=== PATIENT | male | born 1980 | race Two or more races ===

== ENCOUNTER 2020-11-01 11:25 | Inpatient (IN) | payer OTHER ==
[~2020-11-01] VITALS: Ht 172.7 cm; Wt 79.0 kg
[2020-11-01] MEDS ORDERED: SODIUM CHLORIDE 0.9% 1,000 ML IV ONE ×2 (11:45→18:30)
[2020-11-01 12:11] LABS: Basophils # (auto) 0 10 ^3/uL (0-0.2); Basophils % (auto) 0.1 % (0.0-2.0); Eosinophils # (auto) 0 10 ^3/uL (0-0.8); Eosinophils % (auto) 0.1 % (0.0-7.0); Hemoglobin 11.6 g/dL (13.5-17.5); Nucleated Red Blood Cells % 0.1 %; White Blood Cell 24.9 10^3/uL (4.4-10.8)
[2020-11-01 12:13] LABS: Lymphocytes # (auto) 1.5 10 ^3/uL (0.4-5.4); Lymphocytes % (auto) 6.1 % (10.0-50.0); Mean Corpuscular Hemoglobin 27.8 pg (28.0-32.0); Mean Corpuscular Hgb Conc. 35.3 g/dL (32.0-36.0); Mean Corpuscular Volume 78.9 fL (80.0-100.0); Monocytes # (auto) 1.4 10 ^3/uL (0-1.3); Monocytes % (auto) 5.5 % (0.0-12.0); Neutrophils % (auto) 88.2 % (37.0-80.0); Red Blood Cells 4.19 10^6/uL (4.5-5.90)
[2020-11-01 12:19] LABS: Albumin 1.8 g/dL (3.4-5.0); Anion Gap 16 (5-15); Blood Urea Nitrogen 17 mg/dL (7-18); Calcium 7.8 mg/dL (8.5-10.1); Carbon Dioxide 22 mmol/L (21-32); Chloride 76 mmol/L (98-107); Glucose 101 mg/dL (74-106); Potassium 3.1 mmol/L (3.5-5.1)
[2020-11-01 12:25] LABS: Alanine Aminotransferase 20 U/L (16-61); Alkaline Phosphatase 200 U/L (45-117); Aspartate Aminotransferase 88 U/L (15-37); Bilirubin, Total 3.1 mg/dL (0.2-1.0); GFR African American 64 mL/min; GFR Non-African American 53 mL/min; INR 1.34 (0.9-1.15); Partial Thromboplastin Time 35.1 sec (23.0-31.2); Total Protein 7.6 g/dL (6.4-8.2)
[2020-11-01 12:27] LABS: Platelet Count (auto) 543 10^3/uL (140-450)
[2020-11-01 12:31] LABS: Sodium 114 mmol/L (136-145)
[2020-11-01 12:43] LABS: Lactic Acid w/Reflex 3.9 mmol/L (0.4-2.0)
[2020-11-01] MEDS ORDERED: VANCOMYCIN 1GM/250ML 250 ML IV ONE (17:15)
[2020-11-01] MEDS ORDERED: POTASSIUM CHL 20MEQ/100ML 100 ML IV ONE (17:15)
[2020-11-01] MEDS ORDERED: SODIUM CHL 3% 500 ML IV ONE (17:45)
[2020-11-01] MEDS ORDERED: PROMETHAZINE HCL 25 MG/ML 1ML IV ONE (17:45)
[2020-11-01] MEDS ORDERED: LACTULOSE 10g/15ml SOLN PR ONE (17:45)
[2020-11-01] MEDS ORDERED: LIDOCAINE 2% IV ONE (18:00)
[2020-11-01] MEDS ORDERED: POTASSIUM CHL IV ONE (18:00)
[2020-11-01] MEDS ORDERED: POTASSIUM CHLORIDE 20 MEQ, LIDOCAINE 1% (LOCAL ANESTH.) 2 ML in SODIUM CHL 0.9% 100 ML IV ONE (18:15)
[2020-11-01] MEDS ORDERED: VANCOMYCIN PER PHARMACY 0 MG IV SCH (18:30)
[2020-11-01] MEDS ORDERED: ALBUTEROL SULF HFA 90MCG INH 200DOSE IN PRN (18:30)
[2020-11-01] MEDS ORDERED: MORPHINE SULF INJ 2 MG/ML SYRINGE 1ML IV PRN (18:30)
[2020-11-01] MEDS ORDERED: NITROGLYCERIN 0.4 MG SL TAB SL PRN (18:30)
[2020-11-01] MEDS: cefTRIAXone 1GM/50ML D5W 50 ML IV SCH (18:57)
[2020-11-01] MEDS: DexAMETHasone SOD PHOS 10MG/1ML VIAL INJ IV SCH (18:58)
[2020-11-01] MEDS: CHOLECALCIFEROL (VITD3) 2,000 UNIT CAP PO SCH (18:58)
[2020-11-01 19:18] LABS: Lactate Dehydrogenase 307 U/L (87-241)
[2020-11-01 19:51] LABS: CRP High Sensitivity > 19.0 mg/dL (< 0.3)
[2020-11-01] MEDS: ASCORBIC ACID 1,000 MG TAB PO SCH (21:14)
[2020-11-01] MEDS: ENOXAPARIN SOD 40 MG/0.4 ML SYRINGE SC SCH (22:00)
[2020-11-01] MEDS: BUDESONIDE (INHALATION) 180 MCG IH IN SCH (23:23)
[2020-11-02] MEDS ORDERED: POTASSIUM CHL 20MEQ/100ML 100 ML IV ONE (02:45)
[2020-11-02] MEDS: SOD CHL 0.9%/ KCL 20MEQ 1,000 ML IV SCH (02:45)
[2020-11-02] MEDS: LACTULOSE 20Gm/30ML SOLN PO SCH ×4 (06:06→18:32)
[2020-11-02 07:01] LABS: Basophils # (auto) 0 10 ^3/uL (0-0.2); Eosinophils # (auto) 0 10 ^3/uL (0-0.8); Hematocrit 31.7 % (41.0-53.0); Lymphocytes # (auto) 0.3 10 ^3/uL (0.4-5.4); Lymphocytes % (auto) 1.9 % (10.0-50.0); Mean Corpuscular Hemoglobin 27.2 pg (28.0-32.0); Mean Corpuscular Hgb Conc. 34.9 g/dL (32.0-36.0); Mean Corpuscular Volume 77.8 fL (80.0-100.0); Monocytes # (auto) 0.3 10 ^3/uL (0-1.3); Monocytes % (auto) 2.4 % (0.0-12.0); Neutrophils # (auto) 13.1 10 ^3/uL (1.6-8.6); Neutrophils % (auto) 95.7 % (37.0-80.0); Platelet Count (auto) 401 10^3/uL (140-450); Red Blood Cells 4.07 10^6/uL (4.5-5.90); Red Cell Distribution Width 15.1 % (11.8-14.3); White Blood Cell 13.7 10^3/uL (4.4-10.8)
[2020-11-02 07:11] LABS: Potassium 3.5 mmol/L (3.5-5.1)
[2020-11-02 07:19] LABS: Albumin 1.6 g/dL (3.4-5.0); BUN/Creatinine Ratio 25.7; Bilirubin, Total 1.4 mg/dL (0.2-1.0); Total Protein 6.8 g/dL (6.4-8.2)
[2020-11-02] MEDS: ENOXAPARIN SOD 40 MG/0.4 ML SYRINGE SC SCH ×2 (09:20→22:07)
[2020-11-02] MEDS: CHOLECALCIFEROL (VITD3) 2,000 UNIT CAP PO SCH (09:21)
[2020-11-02] MEDS: ASCORBIC ACID 1,000 MG TAB PO SCH (09:22)
[2020-11-02] MEDS: cefTRIAXone 1GM/50ML D5W 50 ML IV SCH (09:43)
[2020-11-02] MEDS: DexAMETHasone SOD PHOS 10MG/1ML VIAL INJ IV SCH (09:43)
[2020-11-02] MEDS: BUDESONIDE (INHALATION) 180 MCG IH IN SCH ×2 (10:05→22:00)
[2020-11-02 10:06] LABS: Amylase 15 U/L (25-115); Lipase 28 U/L (73-393)
[2020-11-02 10:08] LABS: Creatine Kinase IFCC 825 U/L (39-308)
[2020-11-02] MEDS: VANCOMYCIN 1GM/250ML 250 ML IV SCH ×2 (12:40→20:20)
[2020-11-03] MEDS: LACTULOSE 20Gm/30ML SOLN PO SCH ×4 (00:18→18:14)
[2020-11-03] MEDS: SOD CHL 0.9%/ KCL 20MEQ 1,000 ML IV SCH ×2 (03:28→18:56)
[2020-11-03] MEDS: VANCOMYCIN 1GM/250ML 250 ML IV SCH ×3 (04:18→22:11)
[2020-11-03 06:54] LABS: Basophils # (auto) 0 10 ^3/uL (0-0.2); Basophils % (auto) 0.1 % (0.0-2.0); Eosinophils # (auto) 0 10 ^3/uL (0-0.8); Hematocrit 29.2 % (41.0-53.0); Hemoglobin 10.1 g/dL (13.5-17.5); Lymphocytes # (auto) 0.6 10 ^3/uL (0.4-5.4); Lymphocytes % (auto) 4.5 % (10.0-50.0); Mean Corpuscular Hemoglobin 27.4 pg (28.0-32.0); Mean Corpuscular Hgb Conc. 34.6 g/dL (32.0-36.0); Mean Corpuscular Volume 79.3 fL (80.0-100.0); Monocytes # (auto) 1.2 10 ^3/uL (0-1.3); Monocytes % (auto) 8.6 % (0.0-12.0); Neutrophils # (auto) 12.4 10 ^3/uL (1.6-8.6); Neutrophils % (auto) 86.8 % (37.0-80.0); Platelet Count (auto) 405 10^3/uL (140-450); Red Blood Cells 3.69 10^6/uL (4.5-5.90); Red Cell Distribution Width 15.3 % (11.8-14.3); White Blood Cell 14.3 10^3/uL (4.4-10.8)
[2020-11-03 07:11] LABS: Potassium 3.3 mmol/L (3.5-5.1)
[2020-11-03 07:17] LABS: Albumin 1.7 g/dL (3.4-5.0); BUN/Creatinine Ratio 25.4; Bilirubin, Total 0.9 mg/dL (0.2-1.0); Calcium 7.9 mg/dL (8.5-10.1); Total Protein 6.6 g/dL (6.4-8.2)
[2020-11-03] MEDS: cefTRIAXone 1GM/50ML D5W 50 ML IV SCH (09:01)
[2020-11-03] MEDS: ENOXAPARIN SOD 40 MG/0.4 ML SYRINGE SC SCH ×2 (09:01→22:27)
[2020-11-03] MEDS: DexAMETHasone SOD PHOS 10MG/1ML VIAL INJ IV SCH (09:01)
[2020-11-03] MEDS: CHOLECALCIFEROL (VITD3) 2,000 UNIT CAP PO SCH (09:01)
[2020-11-03] MEDS: ASCORBIC ACID 1,000 MG TAB PO SCH (09:01)
[2020-11-03] MEDS: BUDESONIDE (INHALATION) 180 MCG IH IN SCH ×2 (10:00→22:00)
[2020-11-03] MEDS ORDERED: LORazepam 2MG/ML-1ML VIAL IV ONE (22:30)
[2020-11-04 00:39] LABS: Urine Amorphous Crystal MOD /hpf (None Seen); Urine Bacteria MANY /hpf (None Seen); Urine Blood 3+ /uL (Negative); Urine Mucus FEW (None Seen); Urine Specific Gravity 1.027 (1.001-1.035); Urine WBC 2544 /hpf (0 - 3); Urine WBC Clumps PRESENT /hpf (None Seen)
[2020-11-04] MEDS: VANCOMYCIN 1GM/250ML 250 ML IV SCH ×2 (05:52→16:47)
[2020-11-04] MEDS: LACTULOSE 20Gm/30ML SOLN PO SCH ×4 (06:00→17:59)
[2020-11-04] MEDS: ENOXAPARIN SOD 40 MG/0.4 ML SYRINGE SC SCH ×2 (11:17→21:58)
[2020-11-04] MEDS: cefTRIAXone 1GM/50ML D5W 50 ML IV SCH (11:17)
[2020-11-04] MEDS: DexAMETHasone SOD PHOS 10MG/1ML VIAL INJ IV SCH (11:17)
[2020-11-04] MEDS: ASCORBIC ACID 1,000 MG TAB PO SCH (11:17)
[2020-11-04] MEDS: CHOLECALCIFEROL (VITD3) 2,000 UNIT CAP PO SCH (11:17)
[2020-11-04] MEDS: SOD CHL 0.9%/ KCL 20MEQ 1,000 ML IV SCH (11:57)
[2020-11-04 19:10] VITALS: BP 87/53
[2020-11-04 22:30] LABS: Basophils # (auto) 0.2 10 ^3/uL (0-0.2); Basophils % (auto) 2.3 % (0.0-2.0); Eosinophils # (auto) 0 10 ^3/uL (0-0.8); Hematocrit 29.2 % (41.0-53.0); Hemoglobin 10.1 g/dL (13.5-17.5); Lymphocytes # (auto) 0.4 10 ^3/uL (0.4-5.4); Lymphocytes % (auto) 4.9 % (10.0-50.0); Mean Corpuscular Hemoglobin 27.9 pg (28.0-32.0); Mean Corpuscular Hgb Conc. 34.5 g/dL (32.0-36.0); Mean Corpuscular Volume 81.1 fL (80.0-100.0); Monocytes # (auto) 0.5 10 ^3/uL (0-1.3); Monocytes % (auto) 6.2 % (0.0-12.0); Neutrophils # (auto) 7.1 10 ^3/uL (1.6-8.6); Neutrophils % (auto) 86.6 % (37.0-80.0); Platelet Count (auto) 292 10^3/uL (140-450); Red Blood Cells 3.61 10^6/uL (4.5-5.90); Red Cell Distribution Width 15.1 % (11.8-14.3); White Blood Cell 8.2 10^3/uL (4.4-10.8)
[2020-11-04 22:55] LABS: Potassium 3.8 mmol/L (3.5-5.1)
[2020-11-04 23:02] LABS: BUN/Creatinine Ratio 22.7; Bilirubin, Total 0.7 mg/dL (0.2-1.0); Calcium 8.2 mg/dL (8.5-10.1); Total Protein 6.3 g/dL (6.4-8.2)
[2020-11-05 04:30] VITALS: BP 84/49
[2020-11-05] MEDS: VANCOMYCIN 1GM/250ML 250 ML IV SCH (05:03)
[2020-11-05] MEDS: LACTULOSE 20Gm/30ML SOLN PO SCH ×3 (06:30→11:46)
[2020-11-05 08:30] VITALS: BP 92/56
[2020-11-05] MEDS: cefTRIAXone 1GM/50ML D5W 50 ML IV SCH (08:40)
[2020-11-05 09:00] VITALS: BP 92/56
[2020-11-05] MEDS: ENOXAPARIN SOD 40 MG/0.4 ML SYRINGE SC SCH (09:01)
[2020-11-05] MEDS: CHOLECALCIFEROL (VITD3) 2,000 UNIT CAP PO SCH (09:02)
[2020-11-05] MEDS: ASCORBIC ACID 1,000 MG TAB PO SCH (09:02)
[2020-11-05] MEDS: DexAMETHasone SOD PHOS 10MG/1ML VIAL INJ IV SCH (09:03)
[2020-11-05] MEDS: SOD CHL 0.9%/ KCL 20MEQ 1,000 ML IV SCH (10:45)
[2020-11-05 12:35] VITALS: BP 93/57
[2020-11-05 13:07] VITALS: BP 93/57
== END 2020-11-05 16:25 | disposition home or self-care (01) | DRG 871 ==
LOC: ER 11:25 → EDBD 11:25 → TELE 18:34 → TELE-CENTR 11-04 19:10
PROVIDERS: ADMIT Nurse Practitioner Acute Care; ATTEND Family Medicine
DX: A41.9 Sepsis, unspecified organism (principal); E43 Unspecified severe protein-calorie malnutrition; G93.41 Metabolic encephalopathy; J18.9 Pneumonia, unspecified organism; C19 Malignant neoplasm of rectosigmoid junction; D68.59 Other primary thrombophilia; E87.1 Hypo-osmolality and hyponatremia; I31.3 Pericardial effusion (noninflammatory); E11.9 Type 2 diabetes mellitus without complications; E87.6 Hypokalemia; I10 Essential (primary) hypertension; Z20.828 Contact with and (suspected) exposure to other viral communicable diseases; N28.1 Cyst of kidney, acquired; Z88.0 Allergy status to penicillin; Z68.26 Body mass index [BMI] 26.0-26.9, adult
CPT/HCPCS: 36415; 70450; 71045; 74176; 80053; 80202; 80320; 81001; 82140; 82150; 82550; 82728; 82962; 83605; 83615; 83690; 83880; 84484; 85025; 85379; 85610; 85730; 86141; 87040; 87076; 87086; 87426; 93306; 94640; 96374; 96375; 99291; G0378; J0696; J1100; J2001; J3480

== ENCOUNTER 2020-12-12 12:05 | Inpatient (IN) | payer OTHER ==
[~2020-12-12] VITALS: Ht 167.6 cm; Wt 72.6 kg
[2020-12-12] MEDS ORDERED: MORPHINE SULFATE 4 MG/ML SYR/VIAL IV ONE (12:45)
[2020-12-12] MEDS ORDERED: SODIUM CHLORIDE 0.9% 1,000 ML IVB ONE (12:45)
[2020-12-12] MEDS ORDERED: ONDANSETRON HCL 4 MG/2 ML VIAL IV ONE (12:45)
[2020-12-12 13:01] LABS: Basophils # (auto) 0.1 10 ^3/uL (0-0.2); Basophils % (auto) 0.2 % (0.0-2.0); Eosinophils # (auto) 0 10 ^3/uL (0-0.8); Hematocrit 28.8 % (41.0-53.0); Hemoglobin 9.5 g/dL (13.5-17.5); Lymphocytes # (auto) 1.4 10 ^3/uL (0.4-5.4); Lymphocytes % (auto) 4.7 % (10.0-50.0); Mean Corpuscular Hemoglobin 28.3 pg (28.0-32.0); Mean Corpuscular Hgb Conc. 33.1 g/dL (32.0-36.0); Mean Corpuscular Volume 85.6 fL (80.0-100.0); Monocytes # (auto) 1.2 10 ^3/uL (0-1.3); Monocytes % (auto) 4.2 % (0.0-12.0); Neutrophils # (auto) 27.1 10 ^3/uL (1.6-8.6); Neutrophils % (auto) 90.9 % (37.0-80.0); Nucleated Red Blood Cells % 0.1 %; Platelet Count (auto) 631 10^3/uL (140-450); Red Blood Cells 3.37 10^6/uL (4.5-5.90); Red Cell Distribution Width 18.1 % (11.8-14.3); White Blood Cell 29.8 10^3/uL (4.4-10.8)
[2020-12-12 13:13] LABS: Albumin 1.7 g/dL (3.4-5.0); Calcium 7.7 mg/dL (8.5-10.1); Potassium 4.3 mmol/L (3.5-5.1)
[2020-12-12 13:15] LABS: BUN/Creatinine Ratio 13.7; Bilirubin, Total 1.2 mg/dL (0.2-1.0); Total Protein 7.1 g/dL (6.4-8.2)
[2020-12-12] MEDS ORDERED: VANCOMYCIN 1GM/250ML 250 ML IV ONE (14:15)
[2020-12-12] MEDS ORDERED: LACTATED RINGER'S 1,000 ML IV ONE (14:30)
[2020-12-12] MEDS ORDERED: NITROGLYCERIN 0.4 MG SL TAB SL PRN ×2 (14:45→22:30)
[2020-12-12] MEDS ORDERED: MORPHINE SULF INJ 2 MG/ML SYRINGE 1ML IV PRN ×3 (14:45→22:30)
[2020-12-12] MEDS ORDERED: MEROPENEM 500MG IVPB 50 ML IV ONE (14:45)
[2020-12-12] MEDS ORDERED: IOHEXOL 350 MG/ML 100ML IJ ONE ×2 (14:50→15:45)
[2020-12-12 15:23] LABS: INR 1.3 (0.9-1.15); Partial Thromboplastin Time 33.3 sec (23.0-31.2)
[2020-12-12 16:55] LABS: Urine Amorphous Crystal FEW /hpf (None Seen); Urine Bacteria FEW /hpf (None Seen); Urine Blood 2+ /uL (Negative); Urine Hyaline Cast MOD /lpf (0 - 2); Urine Mucus FEW (None Seen); Urine Specific Gravity 1.017 (1.001-1.035); Urine WBC 35 /hpf (0 - 3)
[2020-12-12] MEDS: SODIUM CHLORIDE 0.9% 1,000 ML IV SCH (18:41)
[2020-12-12] MEDS ORDERED: HYDROcodone-ACET 5/325MG TAB PO PRN (22:30)
[2020-12-12] MEDS ORDERED: ACETAMINOPHEN 325 MG TAB PO PRN (22:30)
[2020-12-12] MEDS ORDERED: DOCUSATE SOD 100 MG CAP PO PRN (22:30)
[2020-12-12] MEDS ORDERED: LORazepam 0.5 MG TAB PO PRN (22:30)
[2020-12-12] MEDS ORDERED: ALUM & MAG HYDROX-SIMETH LIQ(MAALOX) 30 ML PO PRN (22:30)
[2020-12-12] MEDS ORDERED: ALBUMIN 25% 100 ML IV ONE (22:30)
[2020-12-12] MEDS ORDERED: VANCOMYCIN PER PHARMACY 0 MG IV SCH (22:30)
[2020-12-12] MEDS ORDERED: ONDANSETRON HCL 4 MG/2 ML VIAL IV PRN (22:30)
[2020-12-12 23:44] LABS: Cholesterol 99 mg/dL (< 200)
[2020-12-12 23:51] LABS: HDL Cholesterol 17 mg/dL (40-59); LDL Cholesterol 69 mg/dL (< 100); Triglycerides 112 mg/dL (< 150)
[2020-12-13] MEDS: SODIUM CHLORIDE 0.9% 1,000 ML IV SCH (04:35)
[2020-12-13 05:48] LABS: Basophils # (auto) 0 10 ^3/uL (0-0.2); Basophils % (auto) 0.1 % (0.0-2.0); Eosinophils # (auto) 0 10 ^3/uL (0-0.8); Eosinophils % (auto) 0.1 % (0.0-7.0); Platelet Count (auto) 334 10^3/uL (140-450)
[2020-12-13 05:51] LABS: Hematocrit 22.4 % (41.0-53.0); Hemoglobin 7.3 g/dL (13.5-17.5); Lymphocytes # (auto) 0.7 10 ^3/uL (0.4-5.4); Lymphocytes % (auto) 3.3 % (10.0-50.0); Mean Corpuscular Hemoglobin 28.6 pg (28.0-32.0); Mean Corpuscular Hgb Conc. 32.7 g/dL (32.0-36.0); Mean Corpuscular Volume 87.6 fL (80.0-100.0); Monocytes # (auto) 1.2 10 ^3/uL (0-1.3); Neutrophils # (auto) 18.1 10 ^3/uL (1.6-8.6); Neutrophils % (auto) 90.5 % (37.0-80.0); Red Blood Cells 2.56 10^6/uL (4.5-5.90); Red Cell Distribution Width 17.7 % (11.8-14.3)
[2020-12-13] MEDS ORDERED: ALBUMIN 25% 100 ML IV SCH (06:00)
[2020-12-13 06:10] LABS: Potassium 4.2 mmol/L (3.5-5.1)
[2020-12-13 06:50] LABS: Albumin 1.7 g/dL (3.4-5.0); Bilirubin, Total 0.8 mg/dL (0.2-1.0); Calcium 7.4 mg/dL (8.5-10.1); Phosphorus 4.4 mg/dL (2.5-4.90); Total Protein 5.8 g/dL (6.4-8.2)
[2020-12-13 06:52] LABS: INR 1.23 (0.9-1.15); Partial Thromboplastin Time 32.8 sec (23.0-31.2)
[2020-12-13 09:00] VITALS: BP 96/56
[2020-12-13] MEDS ORDERED: VANCOMYCIN 1GM/250ML 250 ML IV SCH (09:00)
[2020-12-13] MEDS ORDERED: MEROPENEM 500MG IVPB 50 ML IV SCH (10:00)
[2020-12-13] MEDS ORDERED: FAMOTIDINE (10MG/ML) 2ML VL IV SCH (10:00)
[2020-12-13] MEDS ORDERED: levoFLOXacin 500MG 100 ML IV ONE (12:45)
[2020-12-14] MEDS ORDERED: levoFLOXacin 500MG 100 ML IV SCH (10:00)
[2020-12-14] MEDS ORDERED: MEROPENEM 500MG IVPB 50 ML IV SCH (13:15)
[2020-12-14] MEDS ORDERED: MEROPENEM 1GM IVPB 100 ML IV SCH (22:00)
== END 2020-12-13 10:56 | disposition left against medical advice (07) | DRG 871 ==
LOC: ER 12:05 → TELE 12:06
PROVIDERS: ADMIT Hospitalist; ATTEND Hospitalist
DX: A41.9 Sepsis, unspecified organism (principal); E43 Unspecified severe protein-calorie malnutrition; K65.1 Peritoneal abscess; A09 Infectious gastroenteritis and colitis, unspecified; C19 Malignant neoplasm of rectosigmoid junction; D68.4 Acquired coagulation factor deficiency; E87.1 Hypo-osmolality and hyponatremia; K55.9 Vascular disorder of intestine, unspecified; N17.9 Acute kidney failure, unspecified; N39.0 Urinary tract infection, site not specified; D64.9 Anemia, unspecified; N18.32 Chronic kidney disease, stage 3b; Z83.3 Family history of diabetes mellitus; Z93.3 Colostomy status; I95.9 Hypotension, unspecified; Z20.822 Contact with and (suspected) exposure to COVID-19; Z88.0 Allergy status to penicillin
CPT/HCPCS: 36415; 51702; 71045; 71260; 74176; 74177; 80053; 80061; 81001; 83036; 83690; 83735; 84100; 84484; 85025; 85610; 85730; 86850; 86900; 86901; 87040; 87426; 96361; 96365; 96375; 99291; G0378; J2185; J2405; J3490; P9047

== ENCOUNTER 2021-04-14 07:14 | Inpatient (IN) | payer OTHER ==
[2021-04-14] VITALS (52 sets, daily range): BP systolic 86–132; BP diastolic 35–87
[~2021-04-14] VITALS: Ht 170.2 cm; Wt 67.0 kg
[2021-04-14] MEDS ORDERED: MIDAZOLAM DRIP 50 mg/50mL 50 ML IV ONE (07:17)
[2021-04-14] MEDS ORDERED: NOREPINEPHRINE 8 MG/250ML KIT 250 ML IV ONE (07:23)
[2021-04-14] MEDS: NOREPINEPHRINE 8 MG/250ML KIT 250 ML IV SCH ×2 (07:34→20:00)
[2021-04-14] MEDS: MIDAZOLAM DRIP 50 mg/50mL 50 ML IV SCH ×5 (07:35→22:37)
[2021-04-14] MEDS ORDERED: SODIUM CHLORIDE 0.9% 500 ML IV ONE (07:45)
[2021-04-14] MEDS ORDERED: D5W/SOD CHLO 0.9% 1,000 ML IV ONE (07:45)
[2021-04-14 08:13] LABS: Basophils # (auto) 0 10 ^3/uL (0-0.2); Basophils % (auto) 0.1 % (0.0-2.0); Eosinophils # (auto) 0 10 ^3/uL (0-0.8); Red Cell Distribution Width 15.2 % (11.8-14.3); White Blood Cell 10.6 10^3/uL (4.4-10.8)
[2021-04-14 08:17] LABS: Eosinophils % (auto) 0.1 % (0.0-7.0); Hematocrit 19.5 % (41.0-53.0); Lymphocytes # (auto) 0.3 10 ^3/uL (0.4-5.4); Lymphocytes % (auto) 3.2 % (10.0-50.0); Mean Corpuscular Hemoglobin 31.6 pg (28.0-32.0); Mean Corpuscular Hgb Conc. 32.6 g/dL (32.0-36.0); Mean Corpuscular Volume 96.7 fL (80.0-100.0); Monocytes # (auto) 0.6 10 ^3/uL (0-1.3); Monocytes % (auto) 5.2 % (0.0-12.0); Neutrophils # (auto) 9.7 10 ^3/uL (1.6-8.6); Neutrophils % (auto) 91.4 % (37.0-80.0); Red Blood Cells 2.01 10^6/uL (4.5-5.90)
[2021-04-14 08:20] LABS: Hemoglobin 6.3 g/dL (13.5-17.5)
[2021-04-14 08:30] LABS: Calcium 7.1 mg/dL (8.5-10.1); Magnesium 2.9 mg/dL (1.6-2.6); Potassium 4.5 mmol/L (3.5-5.1)
[2021-04-14 08:35] LABS: Bilirubin, Total 0.6 mg/dL (0.2-1.0); Total Protein 4.6 g/dL (6.4-8.2)
[2021-04-14 08:36] LABS: Lactic Acid w/Reflex 8.1 mmol/L (0.4-2.0)
[2021-04-14 08:40] LABS: Albumin 0.8 g/dL (3.4-5.0)
[2021-04-14] MEDS ORDERED: ALBUMIN 25% 50 ML IV ONE ×3 (10:30→14:30)
[2021-04-14] MEDS ORDERED: SODIUM CHLORIDE 0.9% 1,000 ML IV ONE (11:00)
[2021-04-14] MEDS ORDERED: ALBUMIN 25% 100 ML IV ONE ×3 (11:00→15:00)
[2021-04-14] MEDS ORDERED: PHENYLEPHRINE IV 250 ML IV ONE (11:28)
[2021-04-14] MEDS: PHENYLEPHRINE IV 250 ML IV SCH ×2 (12:12→13:51)
[2021-04-14] MEDS ORDERED: VANCOMYCIN PER PHARMACY 0 MG IV SCH (12:30)
[2021-04-14] MEDS ORDERED: NITROGLYCERIN 0.4 MG SL TAB SL PRN (12:30)
[2021-04-14] MEDS ORDERED: MORPHINE SULFATE INJECTION 2 MG/ML SYRG IV PRN (12:30)
[2021-04-14] MEDS: SODIUM CHLORIDE 0.9% 1,000 ML IV SCH ×2 (13:38→20:30)
[2021-04-14] MEDS: HYDROCORTISONE SOD SUCC 100 MG/2ML INJ VIAL IV SCH (13:46)
[2021-04-14] MEDS: PHENYLEPHRINE INJ 40 MG in SODIUM CHL 0.9% 246 ML IV SCH ×2 (14:30→20:00)
[2021-04-14] MEDS: MEROPENEM 1GM IVPB 100 ML IV SCH ×2 (15:12→22:34)
[2021-04-14] MEDS: VANCOMYCIN 750mg/250ml 250 ML IV SCH (16:15)
[2021-04-14] MEDS: VASOPRESSIN 50 UNITS in D5W 5% 247.5 ML IV SCH (18:25)
[2021-04-14 21:19] LABS: Hematocrit 23.5 % (41.0-53.0)
[2021-04-14 21:25] LABS: Hemoglobin 8.1 g/dL (13.5-17.5)
[2021-04-15] VITALS (97 sets, daily range): BP systolic 91–124; BP diastolic 49–78
[2021-04-15] MEDS: PHENYLEPHRINE INJ 40 MG in SODIUM CHL 0.9% 246 ML IV SCH ×2 (00:15→12:56)
[2021-04-15] MEDS ORDERED: PHENYLEPHRINE HCL 10 MG/ML VL ONE ×2 (00:35→04:56)
[2021-04-15] MEDS ORDERED: PHENYLEPHRINE IV 250 ML IV ONE ×2 (00:35→04:56)
[2021-04-15] MEDS: HYDROCORTISONE SOD SUCC 100 MG/2ML INJ VIAL IV SCH ×2 (01:06→13:03)
[2021-04-15] MEDS: NOREPINEPHRINE 8 MG/250ML KIT 250 ML IV SCH ×2 (02:59→10:30)
[2021-04-15] MEDS: MIDAZOLAM DRIP 50 mg/50mL 50 ML IV SCH ×5 (03:01→23:31)
[2021-04-15] MEDS: MEROPENEM 1GM IVPB 100 ML IV SCH ×3 (05:58→23:03)
[2021-04-15 06:48] LABS: Urine Bacteria MANY /hpf (None Seen); Urine Blood 3+ /uL (Negative); Urine Budding Yeast MANY /hpf (None Seen); Urine Hyaline Cast MANY /lpf (0 - 2); Urine Mucus FEW (None Seen); Urine Specific Gravity 1.019 (1.001-1.035); Urine WBC 270 /hpf (0 - 3); Urine WBC Clumps PRESENT /hpf (None Seen)
[2021-04-15 09:35] LABS: Hematocrit 34.1 % (41.0-53.0); Hemoglobin 11.4 g/dL (13.5-17.5); Mean Corpuscular Hgb Conc. 33.3 g/dL (32.0-36.0); Mean Corpuscular Volume 93.1 fL (80.0-100.0); Red Blood Cells 3.66 10^6/uL (4.5-5.90); Red Cell Distribution Width 15.9 % (11.8-14.3); White Blood Cell 18.9 10^3/uL (4.4-10.8)
[2021-04-15 09:45] LABS: Basophils % (manual) 0 (0.0-2.0); Blast Cells 0; Eosinophils % (manual) 0 (0-7); Metamyelocytes % 0; Myelocytes % 0; Promyelocytes % 0; Reactive Lymphocytes 0
[2021-04-15 09:51] LABS: Potassium 5.1 mmol/L (3.5-5.1)
[2021-04-15 09:59] LABS: Albumin 1.9 g/dL (3.4-5.0); BUN/Creatinine Ratio 31.7; Bilirubin, Total 2.1 mg/dL (0.2-1.0); Calcium 7.2 mg/dL (8.5-10.1); Total Protein 5.5 g/dL (6.4-8.2)
[2021-04-15] MEDS: VANCOMYCIN 750mg/250ml 250 ML IV SCH (10:00)
[2021-04-15] MEDS: SODIUM CHLORIDE 0.9% 1,000 ML IV SCH ×4 (10:00→20:21)
[2021-04-15 10:02] LABS: INR 1.73 (0.9-1.15); Partial Thromboplastin Time 37.5 sec (23.0-31.2)
[2021-04-15 10:45] LABS: Band Neutrophils % (manual) 55; Lymphocytes % (manual) 4 (10.0-50.0); Monocytes % (manual) 5 (0-12)
[2021-04-15] MEDS ORDERED: PANTOPRAZOLE 40 MG/10 ML VIAL INJ IV ONE (11:15)
[2021-04-15] MEDS: VASOPRESSIN 50 UNITS in D5W 5% 247.5 ML IV SCH (12:30)
[2021-04-15 14:03] LABS: Hematocrit 35.4 % (41.0-53.0); Hemoglobin 11.8 g/dL (13.5-17.5); Mean Corpuscular Hemoglobin 30.7 pg (28.0-32.0); Mean Corpuscular Hgb Conc. 33.4 g/dL (32.0-36.0); Mean Corpuscular Volume 91.8 fL (80.0-100.0); Red Blood Cells 3.86 10^6/uL (4.5-5.90); Red Cell Distribution Width 15.5 % (11.8-14.3); White Blood Cell 24.8 10^3/uL (4.4-10.8)
[2021-04-15 14:10] LABS: Basophils % (manual) 0 (0.0-2.0); Blast Cells 0; Eosinophils % (manual) 0 (0-7); Metamyelocytes % 0; Myelocytes % 0; Promyelocytes % 0; Reactive Lymphocytes 0
[2021-04-15] MEDS ORDERED: PHENYLEPHRINE INJ 80 MG in SODIUM CHL 0.9% 242 ML IV SCH (14:15)
[2021-04-15] MEDS ORDERED: NOREPINEPHRINE BITARTRATE 16 MG in SODIUM CHL 0.9% 234 ML IV SCH (14:15)
[2021-04-15 14:20] LABS: BUN/Creatinine Ratio 28.9; Calcium 7.4 mg/dL (8.5-10.1); Potassium 4.5 mmol/L (3.5-5.1)
[2021-04-15 14:24] LABS: Lactic Acid w/Reflex 5.6 mmol/L (0.4-2.0)
[2021-04-15] MEDS: NOREPINEPHRINE BITARTRATE 16 MG in SODIUM CHL 0.9% 234 ML IV SCH (15:43)
[2021-04-15] MEDS ORDERED: NOREPINEPHRINE 8 MG/250ML KIT 250 ML IV SCH (16:00)
[2021-04-15] MEDS ORDERED: PHENYLEPHRINE INJ 40 MG in SODIUM CHL 0.9% 246 ML IV SCH (16:00)
[2021-04-15 16:24] LABS: Band Neutrophils % (manual) 34; Lymphocytes % (manual) 12 (10.0-50.0); Monocytes % (manual) 10 (0-12)
[2021-04-15] MEDS: PHENYLEPHRINE INJ 80 MG in SODIUM CHL 0.9% 242 ML IV SCH (16:50)
[2021-04-16] VITALS (84 sets, daily range): BP systolic 56–185; BP diastolic 11–93
[2021-04-16] MEDS: PHENYLEPHRINE INJ 80 MG in SODIUM CHL 0.9% 242 ML IV SCH ×3 (02:33→17:20)
[2021-04-16] MEDS: NOREPINEPHRINE BITARTRATE 16 MG in SODIUM CHL 0.9% 234 ML IV SCH ×3 (02:35→17:32)
[2021-04-16] MEDS: VANCOMYCIN 750mg/250ml 250 ML IV SCH (02:37)
[2021-04-16 04:29] LABS: Hematocrit 34.5 % (41.0-53.0); Hemoglobin 11.5 g/dL (13.5-17.5); Mean Corpuscular Hemoglobin 31.2 pg (28.0-32.0); Mean Corpuscular Hgb Conc. 33.2 g/dL (32.0-36.0); Mean Corpuscular Volume 93.8 fL (80.0-100.0); Red Blood Cells 3.68 10^6/uL (4.5-5.90)
[2021-04-16] MEDS: PANTOPRAZOLE 40 MG/10 ML VIAL INJ IV SCH (04:31)
[2021-04-16] MEDS: MIDAZOLAM DRIP 50 mg/50mL 50 ML IV SCH ×4 (04:32→16:28)
[2021-04-16] MEDS: SODIUM CHLORIDE 0.9% 1,000 ML IV SCH ×3 (04:33→22:10)
[2021-04-16 04:39] LABS: Basophils % (manual) 0 (0.0-2.0); Blast Cells 0; Eosinophils % (manual) 0 (0-7); Myelocytes % 0; Promyelocytes % 0; Reactive Lymphocytes 0
[2021-04-16 04:45] LABS: Potassium 4.7 mmol/L (3.5-5.1)
[2021-04-16 04:46] LABS: Lactic Acid w/Reflex 4.7 mmol/L (0.4-2.0)
[2021-04-16 04:51] LABS: Albumin 1.7 g/dL (3.4-5.0); BUN/Creatinine Ratio 32.6; Bilirubin, Total 1.1 mg/dL (0.2-1.0); Calcium 7.3 mg/dL (8.5-10.1); Total Protein 5.2 g/dL (6.4-8.2)
[2021-04-16 05:18] LABS: Band Neutrophils % (manual) 24; Lymphocytes % (manual) 6 (10.0-50.0); Metamyelocytes % 1; Monocytes % (manual) 7 (0-12)
[2021-04-16] MEDS: MEROPENEM 1GM IVPB 100 ML IV SCH ×3 (06:29→22:03)
[2021-04-16] MEDS: HYDROCORTISONE SOD SUCC 100 MG/2ML INJ VIAL IV SCH ×2 (13:00)
[2021-04-16] MEDS: VASOPRESSIN 50 UNITS in D5W 5% 247.5 ML IV SCH (17:24)
[2021-04-16] MEDS ORDERED: EPINEPHrine HCL 0 ML IV ONE (17:57)
[2021-04-16] MEDS ORDERED: SODIUM BICARBONATE 8.4 % INJ 50ML VIAL IV ONE ×2 (22:39→22:45)
[2021-04-17] VITALS (26 sets, daily range): BP systolic 32–135; BP diastolic 12–77
[2021-04-17] MEDS: PHENYLEPHRINE INJ 80 MG in SODIUM CHL 0.9% 242 ML IV SCH ×3 (00:37→21:09)
[2021-04-17] MEDS: MIDAZOLAM DRIP 50 mg/50mL 50 ML IV SCH ×3 (00:48→10:22)
[2021-04-17] MEDS: HYDROCORTISONE SOD SUCC 100 MG/2ML INJ VIAL IV SCH ×2 (00:50→13:25)
[2021-04-17] MEDS: SODIUM CHLORIDE 0.9% 1,000 ML IV SCH ×4 (02:22→21:38)
[2021-04-17] MEDS: NOREPINEPHRINE BITARTRATE 16 MG in SODIUM CHL 0.9% 234 ML IV SCH ×3 (02:25→17:47)
[2021-04-17 04:33] LABS: Lactic Acid w/Reflex 9.1 mmol/L (0.4-2.0)
[2021-04-17 04:39] LABS: Chloride 116 mmol/L (98-107); Potassium 5.1 mmol/L (3.5-5.1); Sodium 141 mmol/L (136-145)
[2021-04-17 04:40] LABS: Anion Gap 16 (5-15); BUN/Creatinine Ratio 33.8; Blood Urea Nitrogen 48 mg/dL (7-18); Calcium 7.2 mg/dL (8.5-10.1); GFR African American 70 mL/min; GFR Non-African American 58 mL/min; Glucose 98 mg/dL (74-106)
[2021-04-17 04:43] LABS: Carbon Dioxide 9 mmol/L (21-32)
[2021-04-17] MEDS: VASOPRESSIN 50 UNITS in D5W 5% 247.5 ML IV SCH (05:23)
[2021-04-17] MEDS: MEROPENEM 1GM IVPB 100 ML IV SCH ×3 (06:58→21:38)
[2021-04-17] MEDS: PANTOPRAZOLE 40 MG/10 ML VIAL INJ IV SCH (11:02)
[2021-04-17] MEDS: fentaNYL Drip 2500mCg/250mlNS 250 ML IV SCH (13:24)
[2021-04-18] MEDS: HYDROCORTISONE SOD SUCC 100 MG/2ML INJ VIAL IV SCH (00:21)
[2021-04-18 00:45] VITALS: BP 84/49
[2021-04-18] MEDS: NOREPINEPHRINE BITARTRATE 16 MG in SODIUM CHL 0.9% 234 ML IV SCH (02:45)
[2021-04-18] MEDS: VASOPRESSIN 50 UNITS in D5W 5% 247.5 ML IV SCH (03:22)
[2021-04-18] MEDS: fentaNYL Drip 2500mCg/250mlNS 250 ML IV SCH (03:23)
[2021-04-18] MEDS: SODIUM CHLORIDE 0.9% 1,000 ML IV SCH (04:21)
[2021-04-18] MEDS: PHENYLEPHRINE INJ 80 MG in SODIUM CHL 0.9% 242 ML IV SCH (04:31)
[2021-04-18 04:45] VITALS: BP 98/66
[2021-04-18] MEDS ORDERED: EPINEPHrine HCL 1 MG/10 ML SYRG IV ONE (05:49)
[2021-04-18] MEDS ORDERED: SODIUM BICARBONATE 8.4% INJ 50ML SYRINGE IV ONE (05:49)
[2021-04-18] MEDS ORDERED: CALCIUM CHLOR(10%) 100MG/ML 10ML SYRINGE IV ONE (05:49)
== END 2021-04-18 05:50 | DRG 871 ==
LOC: EDBD 07:14 → ER 07:14 → TELE 12:21 → ICU WEST 14:59
PROVIDERS: ADMIT Nurse Practitioner Acute Care; ATTEND Internal Medicine
PROC: 5A1945Z Respiratory Ventilation, 24-96 Consecutive Hours (ICD-10-PCS; principal; 2021-04-14)
PROC: 0BH17EZ Insertion of Endotracheal Airway into Trachea, Via Natural or Artificial Opening (ICD-10-PCS; 2021-04-14)
PROC: 06HN33Z Insertion of Infusion Device into Left Femoral Vein, Percutaneous Approach (ICD-10-PCS; 2021-04-14)
PROC: 30233N1 Transfusion of Nonautologous Red Blood Cells into Peripheral Vein, Percutaneous Approach (ICD-10-PCS; 2021-04-14)
DX: A41.9 Sepsis, unspecified organism (principal); E43 Unspecified severe protein-calorie malnutrition; G93.41 Metabolic encephalopathy; J96.01 Acute respiratory failure with hypoxia; N17.0 Acute kidney failure with tubular necrosis; R65.21 Severe sepsis with septic shock; J69.0 Pneumonitis due to inhalation of food and vomit; C19 Malignant neoplasm of rectosigmoid junction; D62 Acute posthemorrhagic anemia; I31.3 Pericardial effusion (noninflammatory); D50.9 Iron deficiency anemia, unspecified; Z83.3 Family history of diabetes mellitus; Z20.822 Contact with and (suspected) exposure to COVID-19; N13.9 Obstructive and reflux uropathy, unspecified; N30.90 Cystitis, unspecified without hematuria; Z51.5 Encounter for palliative care; Z85.048 Personal history of other malignant neoplasm of rectum, rectosigmoid junction, and anus; Z93.2 Ileostomy status; Z93.3 Colostomy status; Z68.21 Body mass index [BMI] 21.0-21.9, adult; Z88.0 Allergy status to penicillin
CPT/HCPCS: 31500; 36415; 36430; 36556; 36600; 70450; 71045; 71250; 74176; 80048; 80053; 81001; 82805; 82962; 83605; 83735; 84484; 85007; 85014; 85018; 85025; 85027; 85610; 85730; 86850; 86900; 86901; 86920; 87040; 87070; 87077; 87081; 87086; 87186; 87205; 87426; 93005; 93306; 94002; 94003; 96361; 96365; 96366; 99291; C9113; G0378; J0171; J2185; J2250; J7060; P9047